=== PATIENT | male | born 1950 | race African-American/Black ===

== ENCOUNTER 2016-09-17 12:36 | Inpatient (IN) ==
[2016-09-17] MEDS ORDERED: hydrALAZINE 20 MG/1 ML VIAL IV STA ×2 (15:30→17:07)
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
[2016-09-17] MEDS ORDERED: hydrALAZINE 20 MG/1 ML VIAL ONE ×2 (16:04→17:13)
[2016-09-17 16:07] LABS: Basophils % 0.6 % (0.0-0.8); Eosinophils # 0.2 10*3/uL (0.0-0.87); Eosinophils % 3.7 % (0.00-10.9); Hematocrit 41.6 VOL% (42.0-52.0); Hemoglobin 14.4 GM/DL (14.0-18.0); Immature Granulocytes % 0.2 %; Immature Granulocytes Absolute 0.01 #; Lymphocytes % 40.8 % (21.2-54.2); Mean Corpuscular HGB Conc 34.6 GM/DL (32-36); Mean Corpuscular Hemoglobin 31 PG (27-34); Mean Corpuscular Volume 90.2 FL (87-102); Mean Platelet Volume 10.5 FL (9.6-12.0); Monocytes # 0.5 10*3/uL (0.11-0.8); Monocytes % 10.3 % (1.7-12.7); Neutrophils # 2.2 10*3/uL (1.4-7.4); Neutrophils % 44.4 % (38.7-73.9); Platelet Count 216 T/CUMM (130-400); Red Blood Count 4.61 MC/CUMM (3.8-5.5); Red Cell Distribution Width 11.7 % (9.3-17.3); White Blood Count 4.9 T/CUMM (4-12)
[2016-09-17 16:25] LABS: Apearance,Urine CLEAR (Clear); Bilirubin,Urine Negative (Negative); Blood, Urine Negative (Negative); Glucose,Urine (UA) >=500 mg/dL (Negative); Ketones,Urine Negative (Negative); Nitrite,Urine Negative (Negative); Protein,Urine Negative; RBC,Urine 1 /HPF (0-4); Squamous Epithelial Cell,Urine Occasional /HPF (0-10); Urine Color Yellow (Yellow); Urine Specific Gravity 1.044 (1.001-1.035); Urine Urobilinogen < 2.0 EU/DL (0.2-1.0); WBC,Urine 4 /HPF (0-6)
[2016-09-17 16:32] LABS: Calcium 8.8 MG/DL (8.5-10.1); Osmolality,Calculated 286.7 MOS/KG (273-304)
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
[2016-09-17] MEDS ORDERED: ZALEPLON 5 MG CAPSULE PO PRN (20:33)
[2016-09-17] MEDS ORDERED: DEXTROSE 50% 25 GM/50 ML VIAL IV PRN (20:33)
[2016-09-17] MEDS ORDERED: oxyCODONE/ACETAMINOPHEN 5-325 MG TABLET PO PRN (20:33)
[2016-09-17] MEDS ORDERED: ACETAMINOPHEN 325 MG TABLET PO PRN (20:33)
[2016-09-17] MEDS ORDERED: GLUCAGON 1 MG VIAL IM PRN (20:33)
--- NOTE | 2016-09-17 20:48 | XRay Report ---
XR chest 1V portable Indication: Shortness of breath Comparison: None available Findings: The heart and mediastinum are normal in size and configuration. The pulmonary vascularity is normal in caliber. No lung infiltrates, effusions, pneumothorax or other abnormality is demonstrated. Impression: No acute cardiopulmonary disease. PROCEDURE INTERPRETED AT [facility] DEPARTMENT OF RADIOLOGY Final Report Signed by: Dr. Wilfrido Hill
--- NOTE | 2016-09-17 20:50 | Ultrasound Report ---
Renal ultrasound Indication: Renal failure Comparison: None available Findings: Kidneys are normal in size and echogenicity. No hydronephrosis or nephrolithiasis is seen. The right renal length is 9.9 cm. The left renal length is 8.9 cm. No free fluid or other abnormality is seen. Impression: No evidence of abnormality demonstrated. Ultrasound images stored and captured. PROCEDURE INTERPRETED AT [facility] DEPARTMENT OF RADIOLOGY Final Report Signed by: Dr. Wilfrido Hill
--- NOTE | 2016-09-17 20:50 | XRay Report ---
XR shoulder 2V RT Indication: Shoulder pain Comparison: None available Findings: No evidence of fracture seen. The alignment of the joints appears normal. Mild acromioclavicular joint and mild glenohumeral joint degenerative change is present. No soft tissue abnormality is seen. Impression: Shoulder osteoarthrosis as described above. PROCEDURE INTERPRETED AT [facility] DEPARTMENT OF RADIOLOGY Final Report Signed by: Dr. Wilfrido Hill
[2016-09-17] MEDS ORDERED: VALSARTAN 160 MG TABLET PO SCH (21:00)
[2016-09-17] MEDS: INSULIN LISPRO 100 UNIT/ML SUBCUT SCH (21:03)
[2016-09-17 21:07] LABS: Magnesium 2.1 MG/DL (1.8-2.4); Thyroid Stimulating Hormone 1.26 uIU/ml (0.358-3.74)
[2016-09-17] MEDS: BACLOFEN 10 MG TABLET PO SCH (21:26)
[2016-09-17] MEDS: SODIUM CHLORIDE 0.45% 1,000 ML IV SCH (21:45)
[2016-09-17] MEDS: ENOXAPARIN 40 MG/0.4 ML SYRINGE SUBCUT SCH (21:50)
[2016-09-17] MEDS: GABAPENTIN 300 MG CAPSULE PO SCH (21:52)
[2016-09-17] MEDS: CARVEDILOL 25 MG TABLET PO SCH (21:53)
[2016-09-17] MEDS: glipiZIDE 5 MG TABLET PO SCH (21:53)
[2016-09-17] MEDS: traZODone 50 MG TABLET PO SCH (21:53)
[2016-09-17] MEDS: SIMVASTATIN 40 MG TABLET PO SCH (21:53)
[2016-09-18 05:26] LABS: Basophils % 0.7 % (0.0-0.8); Eosinophils # 0.3 10*3/uL (0.0-0.87); Eosinophils % 6.7 % (0.00-10.9); Hemoglobin 13.6 GM/DL (14.0-18.0); Immature Granulocytes % 0.5 %; Immature Granulocytes Absolute 0.02 #; Lymphocytes # 1.8 10*3/uL (1.4-4.0); Lymphocytes % 40.8 % (21.2-54.2); Mean Corpuscular HGB Conc 35.8 GM/DL (32-36); Mean Corpuscular Hemoglobin 32 PG (27-34); Mean Platelet Volume 10.8 FL (9.6-12.0); Monocytes # 0.5 10*3/uL (0.11-0.8); Monocytes % 12.3 % (1.7-12.7); Neutrophils # 1.7 10*3/uL (1.4-7.4); Platelet Count 201 T/CUMM (130-400); Red Blood Count 4.27 MC/CUMM (3.8-5.5); Red Cell Distribution Width 11.6 % (9.3-17.3); White Blood Count 4.3 T/CUMM (4-12)
[2016-09-18 06:02] LABS: Calcium 8.2 MG/DL (8.5-10.1); Osmolality,Calculated 285.7 MOS/KG (273-304); Potassium 3.8 MMOL/L (3.5-5.1); VLDL CHOLESTEROL 30.8 MG/DL
--- NOTE | 2016-09-18 07:24 | EKG Report ---
Stationary ECG Study [facility] Test Date: 09/17/2016 9:07:27 PM Pat Name: SRIKANTH ELLIOTT Department: Room: 422 Gender: M Linen Clerk: : 1950 Requested by: Monique Tavarez Order Number: [id number] Reading MD: KRISTIAN TRIMBLE Intervals [place] Rate: 72 P: 58 VA: 181 QRS: 19 QRSD: 121 T: 38 QT: 414 QTc: 439 Interpretive Statements ELECTRONIC VENTRICULAR PACEMAKER ABNORMAL RHYTHM ECG NORMAL SINUS RHYTHM Electronically Signed On 09-20-16 16:27:58 CDT by KRISTIAN TRIMBLE [email or web address]
[2016-09-18] MEDS: INSULIN LISPRO 100 UNIT/ML SUBCUT SCH ×4 (07:30→21:09)
--- NOTE | 2016-09-18 10:12 | Hospitalist Progress Note ---
Hospitalist: Subjective Interval history: Pt c/o pain in right shoulder. Also reports he has trouble when he eats solids. He reports he gets stuck mid chest. No nausea or vomiting. Denies changes in his weight. BP better controlled. Exam - Constitutional Vitals: Period Temp Pulse Resp BP Sys/Chakraborty Pulse Ox Last 24 Hr 96.2 F-98.4 F 68-80 18-20 134-160/78-92 91-98 Exam: A and O x 3, comfortable in NAD RRR no M CTAB nonlabored Soft, NT, ND, +BS Warm no c/c/e +tenderness to palpation along right shoulder. No overlying ecchymoses or erythema. No rash. Limited ROM due to pain. Results - Labs CBC & BMP: 09/18/16 04:52 09/18/16 04:52 - Impressions (1) Hypertension Essential Status: Acute Assessment and plan: - Check orthostatics. - hold hydrochlorothiazide due to elevated creatinine - Cont Coreg, Cont hydralazine 100 mg p.o. 3 times daily. Stop diovan due to elevated creatinine and start Nifedipine instead. Monitor vitals. Current Visit: Yes (2) Diabetes mellitus- control unknown. Status: Acute Assessment and plan: - Insulin sliding scale, hold metformin due to elevated creatinine, continue glyburide. Check HgbA1c Current Visit: Yes (3) Concussion Status: Acute Assessment and plan: - Will probably last for 1-[address] shows no acute bleed Current Visit: Yes (4) Acute renal failure Status: Acute Assessment and plan: - Gentle hydration - renal ultrasound normal - hold diuretics and dc Diovan 320 mg po hs until creatinine back to baseline. Current Visit: Yes (5) Headache-Most likely secondary to concussion. Status: Acute Assessment and plan: - Head CT early this morning negative. - May need to see Dr. Mcfarland has an outpatient. Informed patient that neurology was not available - Pain control as needed Current Visit: Yes (6) Right shoulder pain - Xray - Ortho to eval I will be away several days. One of my associates will follow in my absence.
[2016-09-18] MEDS: GABAPENTIN 300 MG CAPSULE PO SCH ×3 (10:27→20:10)
[2016-09-18] MEDS: PANTOPRAZOLE 40 MG TABLET PO SCH (10:27)
[2016-09-18] MEDS: CARVEDILOL 25 MG TABLET PO SCH ×2 (10:28→21:05)
[2016-09-18] MEDS: ASPIRIN CHEW 81 MG TABLET PO SCH (10:28)
[2016-09-18] MEDS: BACLOFEN 10 MG TABLET PO SCH ×3 (10:28→20:12)
[2016-09-18] MEDS: LIDOCAINE 5% PATCH TRANSDERM SCH (10:28)
[2016-09-18] MEDS: traZODone 50 MG TABLET PO SCH ×3 (10:28→20:12)
[2016-09-18] MEDS: CETIRIZINE 10 MG TABLET PO SCH (10:28)
[2016-09-18] MEDS: glipiZIDE 5 MG TABLET PO SCH ×2 (10:28→20:11)
[2016-09-18] MEDS: SODIUM CHLORIDE 0.45% 1,000 ML IV SCH (10:37)
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
[2016-09-18] MEDS: ENOXAPARIN 40 MG/0.4 ML SYRINGE SUBCUT SCH (20:10)
[2016-09-18] MEDS: SIMVASTATIN 40 MG TABLET PO SCH (20:12)
[2016-09-19] MEDS: SODIUM CHLORIDE 0.45% 1,000 ML IV SCH ×2 (01:40→15:19)
[2016-09-19 05:38] LABS: Calcium 7.9 MG/DL (8.5-10.1); Osmolality,Calculated 285.4 MOS/KG (273-304)
[2016-09-19] MEDS: LIDOCAINE 5% PATCH TRANSDERM SCH (09:58)
[2016-09-19] MEDS: glipiZIDE 5 MG TABLET PO SCH (10:02)
[2016-09-19] MEDS: CARVEDILOL 25 MG TABLET PO SCH (10:02)
[2016-09-19] MEDS: BACLOFEN 10 MG TABLET PO SCH (10:03)
[2016-09-19] MEDS: PANTOPRAZOLE 40 MG TABLET PO SCH (10:03)
[2016-09-19] MEDS: GABAPENTIN 300 MG CAPSULE PO SCH (10:03)
[2016-09-19] MEDS: traZODone 50 MG TABLET PO SCH (10:03)
[2016-09-19] MEDS: ASPIRIN CHEW 81 MG TABLET PO SCH (10:04)
[2016-09-19] MEDS: CETIRIZINE 10 MG TABLET PO SCH (10:04)
[2016-09-19] MEDS: INSULIN LISPRO 100 UNIT/ML SUBCUT SCH ×2 (11:17→12:40)
[2016-09-19 11:38] VITALS: BP 165/92
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
== END 2016-09-19 16:00 | disposition home or self-care (01) | DRG 305 ==
LOC: N.ED 12:36 → N.4E 18:27 → SUATTDRO 18:27 → N.4E 21:04
PROVIDERS: ADMIT Family Medicine; ATTEND Internal Medicine